=== PATIENT | male | born 1955 | race Caucasian/White ===

== ENCOUNTER 2024-12-30 09:23 | Outpatient (AMB) | payer MEDICARE, SELFPAY ==
--- NOTE | 2024-12-30 09:25 | A.OFFVIS_ITS ---
Vital Signs 12/30/24 09:31 Height 5 ft 3 in Weight 131 lb BMI 23.2 BP 138/90 H Blood Pressure Location Rt brachial Pulse 72 Pulse Source Pulse Oximeter Pulse Oximetry (%) 96 Oxygen Delivery Method Room Air Intake Visit Reasons: ENP: Parkinsons 05/16 LVM + letter mailed Intake Note: patient referred by Dr. Araujo for parkinson's disease Allergies Penicillins Allergy (Unknown, Verified 12/30/24 09:31) Unknown Medication List - Last Reconciled 12/30/24 by Luann Richmond MD amlodipine 10 mg PO DAILY atorvastatin 40 mg PO DAILY carbidopa-levodopa 25-100 mg 1 tab at 7am , 1pm, 7pm for 2 weeks , then 1 tab at 7am, 11am, 3pm, 7pm orally daily; fluoxetine 20 mg PO DAILY lisinopril 20 mg PO DAILY ondansetron HCl 4 mg PO Q8H PRN HPI Comments Details: 69y/o Right handed male comes for further management of Parkinsons disease. About 6 years ago - he noticed left ahnd tremors which worsened progressively . he was seen at [facility] and diagnosed with parkinsons disease. He was on carbidopa/levodopa 25/100- initially had d madhu denton, non complaint . He restarted 2 mths ago and currently he is on 1 tab bid. He is the caregiver for his . 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 Dressing, showering- slow , needs help. Gait-shuffles, fall 2 mths ago . Dizziness, vertigo ( prior to Parkinsons) No double vision Bowel movements- constipation Urgency Appetite- not good, lost 50 lbs in the past year . He has sleep study many years ago and was told he had sleep apnea. Never started CPAP COUNT INCLUDES [facility] Medical History Mass of right kidney Urinary frequency Spondylosis, cervical Sebaceous cyst Vertigo, benign positional Plantar fasciitis Parkinson disease Pain of right thumb Nephrolithiasis Nausea Major depression in complete remission Hyperglycemia Lower back pain Weight loss Hypercholesteremia Chest wall contusion HTN (hypertension) Hiatal hernia Glucose intolerance Eczema Diverticulosis Colon polyp Atherosclerosis Anxiety Adrenal mass Surgical History Hx of appendectomy Hx of tonsillectomy Hx of colonoscopy Family History Mother Breast cancer in female Father Chronic alcoholism Hyperlipidemia HTN (hypertension) Brother Chronic alcoholism Social History Alcohol intake: never Patient Tobacco Use Status: Never used Tobacco Use of substances other than those prescribed or required for medical reasons: Yes Substance Use Type: Marijuana Physical Exam Vital Signs: Last Vital Signs Pulse 72 12/30/24 09:31 BP 138/90 H 12/30/24 09:31 Pulse Ox 96 12/30/24 09:31 Oxygen Delivery Method Room Air 12/30/24 09:31 BMI result Body Mass Index 23.2 Const General: cooperative, healthy appearing and no acute distress Nutritional Appearance: average body habitus Orientation/consciousness: patient oriented x3 HEENT Head: Yes normal to inspection Neck Other: mild antecollis and restricted range of motion Neuro Other: Severely decreased blink and facial expression mild lower lip tremors, tongue tremors , slow tongue movements Voice- hypophonia Left UE high amplitude rest tremors and Right Ue rest tremors Fine Finger movements - severely decreased eboni l>R Alternating hand movements - decreased eboni Hand movements - decreased eboni Foot taps- decreased eboni Eboni cog wheel rigidity gait - stooped, mild slowness and decreased arm swing L>R General: patient oriented x3 and no focal motor deficits Cranial nerves: Yes CN's II-XII intact bilaterally, Yes Bilaterally intact EOM present, Yes Normal facial strength present and Yes Midline tongue present Cognition (Neuro): normal cognition Motor exam (neuro): 5/5 motor strength present throughout Deep tendon reflexes (DTR's): Right triceps reflex intensity grade: 2+, Left tr iceps reflex intensity grade: 2+, Rt Biceps (C5, C6): 2+, Left biceps reflex intensity grade: 2+, Right brachioradialis reflex intensity grade: 2+, Left brachioradialis reflex intensity grade: 2+ and Right patellar reflex intensity grade: 2+ Coordination: [id number] test normal Assessment & Plan Assessment & Plan (1) Parkinson's disease without dyskinesia: Code(s): G20.A1 - Parkinson's disease without dyskinesia, without mention of fluctuations Category: Medical Qualifiers: Fluctuating manifestations: without fluctuating manifestations Qualified Code(s): G20.A1 - Parkinson's disease without dyskinesia, without mention of fluctuations Plan Increase carbidopa/levodopa 25/100 1 tab qam ( 7am ) 1 tab ( 1pm ) and 1 tab 7pm with snacks for 2 weeks After that increase to 1 tab qid ( [id number]-[id number]-8pm ) Decrease the amount of time in bed . ( go to bed at 10 pm and wake up at 6am ) PT and OT for gait training discussed sleep hygiene Orders: Orders OT Evaluation and Treatment Today G20.A1 - Parkinson's disease without dyskinesia, without mention of fluctuations PT Evaluation and Treatment Today G20.A1 - Parkinson's disease without dyskine serena, without mention of fluctuations Medications: New carbidopa-levodopa 25-100 mg 1 tab at 7am , 1pm, 7pm for 2 weeks , then 1 tab at 7am, 11am, 3pm, 7pm orally daily; 120 tabs 6RF Coding Level of Care Code New Pt Level 4 (84914) Complex EM visit Add On G2211 Diagnoses Parkinson's disease without dyskinesia or fluctuating manifestations G20.A1 Fluctuating manifestations: without fluctuating manifestations
[2024-12-30 09:31] VITALS: BP 138/90; PULSE 72; O2SAT 96; BMI 23.2
== END 2024-12-30 10:26 | disposition home or self-care (01) ==
PROVIDERS: PCP Internal Medicine; Visit Provider Psychiatry & Neurology Neurology
DX: G20.A1 Parkinson's disease without dyskinesia, without mention of fluctuations (principal)
CPT/HCPCS: 99204; G2211

== ENCOUNTER → 2024-12-30 09:23 | Outpatient (BNVA) | payer MEDICARE, SELFPAY | PROVIDERS: PCP Internal Medicine; Visit Provider Psychiatry & Neurology Neurology | DX: G20.A1 Parkinson's disease without dyskinesia, without mention of fluctuations (principal) | CPT/HCPCS: 99202 ==

== ENCOUNTER 2025-05-05 12:15 | Outpatient (AMB) | payer MEDICARE, SELFPAY ==
--- OUTSIDE RECORDS SUMMARY | 2025-05-02 23:59 | XMS_ITS | Continuity of Care Document ---
Author Organization [facility] Address [address] [place] [address]- Care Team Providers Care Assistant Professor In Family Studies Name Role Phone Gayle IBARRA, Philip Monreal Primary Care Physician [phone] Encounter [facility] Date(s): 04/02/25 - 05/02/25 [facility] [address] [place] [address]- Attending Physician: Admtr, [id number] Admitting Physician: Admtr, Ar8 Referring Physician: Admtr, Ar8 Encounter Type: Triage Allergies, Adverse Reactions, Alerts Substance Criticality Severity Reaction Reaction Severity Status penicillin welts Active Immunizations Given and Recorded Vaccine Date Status Refusal Reason influenza virus vaccine, inactivated 07/31/24 Mane rded influenza virus vaccine, inactivated 08/07/23 Give n influenza virus vaccine, inactivated 08/11/22 Give n influenza virus vaccine, inactivated 1 08/11/22 Gi hiwot influenza virus vaccine, inactivated 08/17/21 Mane rded influenza virus vaccine, inactivated 08/28/19 Mane rded influenza virus vaccine, inactivated 07/24/18 Mane rded influenza virus vaccine, inactivated 08/10/17 Mane rded influenza virus vaccine, inactivated 07/27/17 Mane rded influenza virus vaccine, inactivated 07/26/16 Mane rded influenza virus vaccine, inactivated 07/14/15 Give n influenza virus vaccine, inactivated 08/06/14 Give n influenza virus vaccine, inactivated 08/30/13 Give n SARS-CoV-2(COVID-19)mRNA-LNP vac([id number]) 07/31/24 Recorded RSV vaccine preF3, recombinant 08/22/23 Recorded SARS-CoV-2(COVID-19)mRNA-LNP vac([id number]) 08/22/23 Recorded pneumococcal 20-valent conjugate vaccine 02/10/23 Given [id number] 12y+ bivalent booster vax 08/11/22 Given SARS-CoV-2 (COVID-19) mRNA-1273 vaccine 03/07/22 R ecorded pneumococcal 23-valent vaccine 10/05/21 Given SARS-CoV-2 (COVID-19) mRNA BNT-162b2 vac 08/17/21 Recorded SARS-CoV-2 (COVID-19) mRNA BNT-162b2 vac 02/06/21 Recorded SARS-CoV-2 (COVID-19) mRNA BNT-162b2 vac 01/14/21 Recorded pneumococcal 13-valent vaccine 12/15/20 Given Influenza Virus Vaccine (oldterm) 08/24/20 Recorde d tetanus/diphtheria/pertussis, acel(Tdap) 06/13/18 Given FluLaval (oldterm) 2 09/28/10 Given Influenza Inactive (IM) (oldterm) 10/17/08 Given Tet/Diphth/Acel, Pertussis (oldterm) 10/11/08 Give n Tetanus Toxoid Vaccine (oldterm) 11/06/97 Given 1Early/Late Reason: Early/Late Reason: Other : poc document 2Admin Note: [facility] Medications amLODIPine 10 mg oral tablet 1 tablet, By Mouth, Daily, # 90 tablet, 1 Refills, Maintenance, 03/29/25 4:03:00 PM EDT, [id number], 158.1, cm, 03/12/25 10:21:00 EDT, Height, 59, kg, 03/10/25 13:42:00 EDT, Dry Weight Start Date: 03/29/25 Status: Ordered Quantity: 90.0 Unit: tablet Repeat number: 1 atorvastatin 40 mg oral tablet 1 tablet, By Mouth, Daily, # 90 tablet, 1 Refills, Maintenance, 03/29/25 4:03:00 PM EDT, [id number], 158.1, cm, 03/12/25 10:21:00 EDT, Height, 59, kg, 03/10/25 13:42:00 EDT, Dry Weight Start Date: 03/29/25 Status: Ordered Quantity: 90.0 Unit: tablet Repeat number: 1 FLUoxetine 20 mg oral capsule 1, capsule, By Mouth, Daily, # 90 capsule, Refills 1, Maintenance, 03/29/25 4:03:00 PM EDT, Route toPharmacy Electronically, [id number], 158.1, cm, 03/12/25 10:21:00 EDT, Height, 59, kg, 03/10/25 13:42:00 EDT, Dry Weight Start Date: 03/29/25 Status: Ordered Quantity: 90.0 Unit: capsule Repeat number: 1 lisinopril 20 mg oral tablet 1, tablet, By Mouth, Daily, # 90 tablet, Refills 1, Maintenance, 03/29/25 4:03:00 PM EDT, Route to Pharmacy Electronically, [id number], 158.1, cm, 03/12/25 10:21:00 EDT, Height, 59, kg, 03/10/25 13:42:00 EDT, Dry Weight Start Date: 03/29/25 Status: Ordered Quantity: 90.0 Unit: tablet Repeat number: 1 LORazepam 0.5 mg oral tablet 0.5 tablet = 0.25 mg, By Mouth, Once, 0 Refills, Maintenance, 01/14/25 11:30:00 AM EDT, Tablet, Partial fill upon patient request if the prescription is for a schedule II opioid drug. Start Date: 01/14/25 Status: Ordered Repeat number: 1 ondansetron 4 mg oral tablet 1 tablet = 4 mg, By Mouth, Every 8 hours, PRN Nausea & Vomiting, # 30 tablet, 1 Refills, Maintenance, 09/10/24 12:34:00 PM EST, Tablet, [facility]/pharmacy #[id number], Partial fill upon patient request if theprescription is for a schedule II opioid drug., 160, cm, 09/09/24 14:40:00 EST, Height, 61.4, kg, 04/05/24 10:21:00 EDT, Dry Weight Start Date: 09/10/24 Status: Ordered Quantity: 30.0 Unit: tablet Repeat number: 2 Sinemet 25 mg-100 mg oral tablet 1 tablet, By Mouth, 2 times a day, # 60 tablet, 5 Refills, Maintenance, 10/11/24 3:21:00 PM EST, Tablet, [facility]/pharmacy #[id number], Partial fill upon patient request if the prescription is for a schedule II opioid drug., 1 tablet By Mouth 2 times a day,x30 days, 160, cm, 10/11/24 15:00:00 EST, Height, 61.4, kg, 04/05/24 10:21:00 EDT, Dry Weight Start Date: 10/11/24 Stop Date: 04/09/25 Status: Ordered Quantity: 60.0 Unit: tablet Repeat number: 6 Problem List Condition Confirmation Course Effective Dates Status Health Status Informant Adrenal mass, right Confirmed Active Anxiety Confirmed Active Atherosclerosis 1 Confirmed Active Spondylosis, cervical Confirmed Active Colonoscopy 2, 3 Confirmed Active Chest wall contusion Confirmed Active Elevated cortisol level Confirmed Active Glucose intolerance Confirmed Active Diverticulosis 4 Confirmed Active Eczema Confirmed Active Hiatal hernia 5 Confirmed Active HTN (hypertension) Confirmed Active Hypercholesterolemia Confirmed Active Hyperglycemia Confirmed Active Urinary frequency Confirmed Active Low back pain Confirmed Active Major depression in complete remission Confirmed Active Nausea Confirmed Active Nephrolithiasis Confirmed Active Pain of right thumb Confirmed Active Parkinsons disease Confirmed Active Plantar fasciitis of right foot Confirmed Active Colon polyp 6 Confirmed Active Positional vertigo Confirmed Active Sebaceous Cyst Confirmed Active Loss of weight Confirmed Active 1Noted on CT abdomen ; repeat 2020 3colonoscopy 2003 negative repeat 2012 4colo [address] abdomen 6colo 2016 Social History Social History Type Response Smoking Status Never (less than 100 in lifetime) entered on: 04/05/24 Sex Sex Representation Male (finding) Patient Care team information Care Team Personnel Name: Philip Araujo MD Position: [facility] Physician - Primary Care Member Role: PCP Address: [address] [place] [id number] Telecom: Name: Tiffany Ferrer RN Position: [facility] RN Member Role: Primary Care Nurse Care Team Related Persons Name: JOSEMANUEL PORTILLO Name: KAREN BERG Name: LUDWIN BERG Insurance Providers Guarantor name: SPRING BERG Health Plan Information #: 1 Payer: [employer] PPO Payer Identifier: NA Member Number: [id number] Group Number: [id number] Subscriber Identifier: [id number] Relationship to Subscriber: self Coverage Type: Medicare PPO Coverage Verification Date: NA Telecom: NA Address:
[2025-05-05 12:21] VITALS: BP 130/80; BMI 23.6
--- NOTE | 2025-05-05 12:21 | A.OFFVIS_ITS ---
Vital Signs 05/05/25 12:21 Height 5 ft 3 in Weight 133 lb BMI 23.6 BP 130/80 Blood Pressure Location Rt brachial Position Sitting Intake Visit Reasons: f/u appt Intake Note: Patient presents for carbidopa levodopa increase Allergies Penicillins Allergy (Unknown, Verified 05/05/25 12:23) Unknown Medication List - Last Reconciled 05/05/25 by Luann Richmond MD amlodipine 10 mg PO DAILY atorvastatin 40 mg PO DAILY carbidopa-levodopa 25-100 mg 1 tab at 7am , 1pm, 7pm for 2 weeks , then 1 tab at 7am, 11am, 3pm, 7pm orally daily; fluoxetine 20 mg PO DAILY lisinopril 20 mg PO DAILY ondansetron HCl 4 mg PO Q8H PRN HPI Comments Details: 69y/o Right handed male comes for follow up of Parkinsons disease. He is doing good with increase in carbidopa/levodopa 25/100 1 tab qid and PT. History from initial visit- About 6 years ago - he noticed left hand tremors which worsened progressively . he was seen at [facility] and diagnosed with parkinsons disease. He was on carbidopa/levodopa 25/100- initially had d madhu denton, non complaint . He restarted 2 mths ago and currently he is on 1 tab bid. He is the caregiver for his . 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 Dressing, showering- slow , needs help. Gait-shuffles, fall 2 mths ago . Dizziness, vertigo ( prior to Parkinsons) No double vision Bowel movements- constipation Urgency Appetite- not good, lost 50 lbs in the past year . He has sleep study many years ago and was told he had sleep apnea. Never started CPAP [facility] Medical History Parkinson's disease without dyskinesia Mass of right kidney Urinary frequency Spondylosis, cervical Sebaceous cyst Vertigo, benign positional Plantar fasciitis Parkinson disease Pain of right thumb Nephrolithiasis Nausea Major depression in complete remission Hyperglycemia Lower back pain Weight loss Hypercholesteremia Chest wall contusion HTN (hypertension) Hiatal hernia Glucose intolerance Eczema Diverticulosis Colon polyp Atherosclerosis Anxiety Adrenal mass Surgical History H/O thumb surgery Hx of appendectomy Hx of tonsillectomy Hx of colonoscopy Family History Mother Breast cancer in female Father Chronic alcoholism Hyperlipidemia HTN (hypertension) Brother Chronic alcoholism Social History Alcohol intake: never Patient Tobacco Use Status: Never used Tobacco Substance Use Type: Marijuana Physical Exam Vital Signs: Last Vital Signs BP 130/80 05/05/25 12:21 BMI result Body Mass Index 23.6 Const General: cooperative, healthy appearing and no acute distress Nutritional Appearance: average body habitus Orientation/consciousness: patient oriented x3 HEENT Head: Yes normal to inspection Neck Other: mild antecollis and restricted range of motion Neuro Other: Mild decreased blink and facial expression mild lower lip tremors, tongue tremors , slow tongue movements Voice- hypophonia- mild improved Left UE high amplitude rest tremors and Right Ue rest tremors Fine Finger movements - mildly decreased eboni l>R Alternating hand movements -mildly decreased eboni Hand movements -mild decreased eboni Foot taps- mild decreased eboni Eboni cog wheel rigidity gait -mild stooped,good stride , mild decreased arm swings General: patient oriented x3 and no focal motor deficits Cranial nerves: Yes CN's II-XII intact bilaterally, Yes Bilaterally intact EOM present, Yes Normal facial strength present and Yes Midline tongue present Cognition (Neuro): normal cognition Motor exam (neuro): 5/5 motor strength present throughout Assessment & Plan Assessment & Plan (1) Parkinson's disease without dyskinesia: Code(s): G20.A1 - Parkinson's disease without dyskinesia, without mention of fluctuations Category: Medical Qualifiers: Fluctuating manifestations: without fluctuating manifestations Qual ified Code(s): G20.A1 - Parkinson's disease without dyskinesia, without mention of fluctuations Plan Continue carbidopa/levodopa 25/100 1 tab qid ( [id number]-[id number]-3vd-8pm )- will consider increasing the dose to 1 1/2 tabs qid sleeping better - 10pm-5am PT - helped OT for hand will consider AYESHA trio discussed sleep hygiene Orders: Orders OT Evaluation and Treatment Today G20.A1 - Parkinson's disease without dyskinesia, without mention of fluctuations Coding Level of Care Code Est Pt Level 4 (88247) Complex EM visit Add On G2211 Diagnoses Parkinson's disease without dyskinesia or fluctuating manifestations G20.A1 Fluctuating manifestations: without fluctuating manifestations
== END 2025-05-05 13:08 | disposition home or self-care (01) ==
LOC: HO.HSMS 12:16
PROVIDERS: PCP Internal Medicine; Visit Provider Psychiatry & Neurology Neurology
DX: G20.A1 Parkinson's disease without dyskinesia, without mention of fluctuations (principal)
CPT/HCPCS: 99214; G2211

== ENCOUNTER → 2025-05-05 12:15 | Outpatient (BNVA) | payer MEDICARE, SELFPAY | PROVIDERS: PCP Internal Medicine; Visit Provider Psychiatry & Neurology Neurology | DX: G20.A1 Parkinson's disease without dyskinesia, without mention of fluctuations (principal) | CPT/HCPCS: 99212 ==

== ENCOUNTER 2025-09-03 14:46 | Outpatient (AMB) | payer MEDICARE, SELFPAY ==
--- NOTE | 2025-09-03 14:47 | MHC.OFFVIS ---
Vital Signs 09/03/25 14:48 Height 5 ft 3 in Weight 131 lb BMI 23.2 BP 118/82 Blood Pressure Location Rt brachial Position Sitting Pulse 87 Pulse Source Pulse Oximeter Pulse Oximetry (%) 99 Oxygen Delivery Method Room Air Intake Visit Reasons: 4 Months Follow up Intake Note: Follow up Parkinson's disease without dyskinesia [employer] Required: No Accompanied by: Self / Same As Patient Allergies Penicillins Allergy (Unknown, Verified 09/03/25 14:48) Unknown Medication List - Last Reconciled 09/03/25 by Luann Richmond MD amlodipine 10 mg PO DAILY atorvastatin 40 mg PO DAILY carbidopa-levodopa 25-100 mg 1 tab at 7am, 11am, 3pm, 7pm orally daily; 30 days fluoxetine 20 mg PO DAILY lisinopril 20 mg PO DAILY ondansetron HCl 4 mg PO Q8H PRN HPI Comments Details: 70y/o Right handed male comes for follow up of Parkinsons disease.He stopped carbidopa/levodopa 3 weeks ago as he ran out of prescription and did not fill because of financial reasons. But when he was taking he was doing good.No falls. He is independent in all his ADLS His is bedridden History from initial visit- About 6 years ago - he noticed left hand tremors which worsened progressively . he was seen at [facility] and diagnosed with parkinsons disease. He was on carbidopa/levodopa 25/100- initially had d madhu denton, non complaint . He restarted 2 mths ago and currently he is on 1 tab bid. He is the caregiver for his . 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 Dressing, showering- slow , needs help. Gait-shuffles, fall 2 mths ago . Dizziness, vertigo ( prior to Parkinsons) No double vision Bowel movements- constipation Urgency Appetite- not good, lost 50 lbs in the past year . He has sleep study many years ago and was told he had sleep apnea. Never started CPAP [facility] Medical History Parkinson's disease without dyskinesia Mass of right kidney Urinary frequency Spondylosis, cervical Sebaceous cyst Vertigo, benign positional Plantar fasciitis Parkinson disease Pain of right thumb Nephrolithiasis Nausea Major depression in complete remission Hyperglycemia Lower back pain Weight loss Hypercholesteremia Chest wall contusion HTN (hypertension) Hiatal hernia Glucose intolerance Eczema Diverticulosis Colon polyp Atherosclerosis Anxiety Adrenal mass Surgical History H/O thumb surgery Hx of appendectomy Hx of tonsillectomy Hx of colonoscopy Family History Mother Breast cancer in female Father Chronic alcoholism Hyperlipidemia HTN (hypertension) Brother Chronic alcoholism Social History Alcohol intake: never Patient Tobacco Use Status: Never used Tobacco Substance Use Type: Marijuana Physical Exam Vital Signs: Last Vital Signs Pulse 87 09/03/25 14:48 BP 118/82 09/03/25 14:48 Pulse Ox 99 09/03/25 14:48 Oxygen Delivery Method Room Air 09/03/25 14:48 BMI result Body Mass Index 23.2 Const General: cooperative, healthy appearing and no acute distress Nutritional Appearance: average body habitus Orientation/consciousness: patient oriented x3 HEENT Head: Yes normal to inspection Neck Other: mild antecollis and restricted range of motion Neuro Other: Mild decreased blink and facial expression mild lower lip tremors, tongue tremors , slow tongue movements Voice- hypophonia- mild improved Left UE high amplitude rest tremors and Right Ue rest tremors Fine Finger movements - mildly decreased kai l>R Alternating hand movements -mildly decreased kai Hand movements -mild decreased kai Foot taps- mild decreased kai Kai cog wheel rigidity gait -mild stooped,good stride , mild decreased arm swings General: patient oriented x3 and no focal motor deficits Cranial nerves: Yes CN's II-XII intact bilaterally, Yes Bilaterally intact EOM present, Yes Normal facial strength present and Yes Midline tongue present Cognition (Neuro): normal cognition Motor exam (neuro): 5/5 motor strength present throughout Assessment & Plan Assessment & Plan (1) Parkinson's disease without dyskinesia: Code(s): G20.A1 - Parkinson's disease without dyskinesia, without mention of fluctuations Category: Medical Plan Restart carbidopa/levodopa 25/100 1 tab qid ( [id number]-7bu-8pm )- wi sleeping better - 10pm-5am PT - helped - continue exercises discussed sleep hygiene and compliance with meds Orders: Orders PT Evaluation and Treatment Today G20.A1 - Parkinson's disease without dyskinesia, without mention of fluctuations Medications: Changed From carbidopa-levodopa 25-100 mg 1 tab at 7am , 1pm, 7pm for 2 weeks , then 1 tab at 7am, 11am, 3pm, 7pm orally daily; 120 tabs 6RF To carbidopa-levodopa 25-100 mg 1 tab at 7am, 11am, 3pm, 7pm orally daily; 120 tabs 6RF 30 days Coding Level of Care Code Est Pt Level 4 (40742) Complex EM visit Add On G2211 Diagnoses Parkinson's disease without dyskinesia G20.A1
[2025-09-03 14:48] VITALS: BP 118/82; PULSE 87; O2SAT 99; BMI 23.2
== END 2025-09-03 15:07 | disposition home or self-care (01) ==
LOC: HO.HSMS 14:47
PROVIDERS: PCP Internal Medicine; Visit Provider Psychiatry & Neurology Neurology
DX: G20.A1 Parkinson's disease without dyskinesia, without mention of fluctuations (principal)
CPT/HCPCS: 99214; G2211

== ENCOUNTER → 2025-09-03 14:46 | Outpatient (BNVA) | payer MEDICARE, SELFPAY | PROVIDERS: PCP Internal Medicine; Visit Provider Psychiatry & Neurology Neurology | DX: G20.A1 Parkinson's disease without dyskinesia, without mention of fluctuations (principal) | CPT/HCPCS: 99212 ==